=== PATIENT | female | born 1985 | race Two or more races ===

== ENCOUNTER 2025-06-03 19:52 | Emergency (ER) | payer SELFPAY ==
[~2025-06-03] VITALS: Ht 147.3 cm; Wt 45.8 kg
[2025-06-03 23:35] VITALS: BP 125/72; PULSE 72; RESP 16; TEMP 98.1; O2SAT 98
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
== END 2025-06-04 04:06 | disposition home or self-care (01) ==
LOC: ER 19:52
DX: S29.012A Strain of muscle and tendon of back wall of thorax, initial encounter (principal); R51.9 Headache, unspecified; V59.40XA Driver of pick-up truck or van injured in collision with unspecified motor vehicles in traffic accident, initial encounter; Y93.89 Activity, other specified; Y92.410 Unspecified street and highway as the place of occurrence of the external cause; Y99.8 Other external cause status